=== PATIENT | female | born 1990 | race Caucasian/White ===

== ENCOUNTER 2018-08-02 11:41 | Emergency (ER) | payer SELFPAY | END 2018-08-02 12:51 | disposition home or self-care (01) | LOC: ERS 11:41 | DX: L60.0 Ingrowing nail (principal) | CPT/HCPCS: 99283 ==

== ENCOUNTER 2019-08-02 13:20 | Inpatient (IN) | payer SELFPAY ==
[2019-08-02] MEDS ORDERED: Activated Charcoal/Sorbitol 25 GM/120 ML TUBE ONE (14:20)
[2019-08-02 14:52] LABS: #Lymphocytes 2.4 thou/uL (1.20-3.40); #Monocytes 0.7 thou/uL (0.11-0.59); #Neutrophils 9.8 thou/uL (1.40-6.50); %Basophils 0.4 % (0.0-1.0); %Eosinophils 0.3 % (0.0-10.0); %Lymphocytes 18.3 % (21.0-51.0); %Monocytes 5.3 % (0.0-10.0); %Neutrophils 75.8 % (42.0-75.0); Hemoglobin 13.3 g/dL (12.0-16.0); Mean Corpuscular HGB CONC 33.8 g/dL (32.0-36.0); Mean Corpuscular Hemoglobin 29.1 pg (27.0-31.0); Mean Corpuscular Volume 85.9 fL (78.0-98.0); Mean Platelet Volume 7.7 fL (7.4-10.4); Platelet Count 297 thou/uL (130-400); RBC Distribution Width 11.8 % (11.5-14.5); Red Blood Cell (RBC) Count 4.58 mill/uL (4.20-5.40); White Blood Cell (WBC) Count 12.9 thou/uL (4.8-10.8)
[2019-08-02 15:12] LABS: Acetaminophen Less than 6.0 mcg/mL (10.0-30.0); Alcohol Less than 10 mg/dL (Less than 10); Salicylate Less than 8.0 mg/dL (15.0-30.0)
[2019-08-02 15:13] LABS: ALT (SGPT) 14 U/L (8-55); AST (SGOT) 36 U/L (5-34); Albumin 4.2 g/dL (3.5-5.0); Alkaline Phosphatase 78 U/L (40-110); Anion Gap 14 mmol/L (10-20); BUN (Urea Nitrogen) 16 mg/dL (7.0-18.7); Bilirubin, Total 0.3 mg/dL (0.2-1.2); Calc. Creatinine Clearance 0 mL/min (70-130); Calcium 9.2 mg/dL (7.8-10.44); Carbon Dioxide 25 mmol/L (22-29); Chloride 104 mmol/L (98-107); Estimated GFR-MDRD Greater than 90; Globulin 3.1 g/dL (2.4-3.5); Glucose 88 mg/dL (70-105); Potassium 3.7 mmol/L (3.5-5.1); Protein, Total 7.3 g/dL (6.0-8.3); Sodium 139 mmol/L (136-145)
[2019-08-02 16:45] LABS: Bacteria/HPF None Seen HPF (None Seen); Bilirubin Negative (Negative); Blood, Urine 2+ (Negative); Clarity Clear (Clear); Glucose, Urine (Dipstick) Normal (Negative); Leukocyte Negative Leu/uL (Negative); Nitrite Negative (Negative); Protein, Urine (Dipstick) Negative (Neg-Trace); RBC/HPF 0-3 HPF (0-3); Squamous Epithelial None Seen HPF (0-3); Urobilinogen Normal mg/dL (Less than 2); WBC/HPF 0-3 HPF (0-3)
[2019-08-02 17:23] LABS: Pregnancy Test - Urine (BHCG) Negative (Negative); Pregu Control Background? CLEAR/WHITE (CLR/WHITE); Pregu Control Bar Appear? YES (CONTROL BAR); Specific Gravity 1.014 (1.002-1.036)
[2019-08-02 17:33] LABS: Amphetamine Not Detected (NotDetected); Barbiturates Screen Not Detected (NotDetected); Benzodiazepine Screen Not Detected (NotDetected); Cocaine Metabolite Screen Not Detected (NotDetected); Medtox Control Line Valid? VALID (VALID); Medtox Reader # READER 4; Methadone Not Detected (NotDetected); Methamphetamine Not Detected (NotDetected); Opiate Screen Not Detected (NotDetected); Oxycodone Screen Not Detected (NotDetected); Phencyclidine (PCP) Not Detected (NotDetected); THC/Cannabinoid Screen Not Detected (NotDetected); Tricyclic Screen Not Detected (NotDetected)
[2019-08-02] MEDS ORDERED: Calcium Carbonate 500 MG ChewTAB PO PRN (18:34)
[2019-08-02] MEDS ORDERED: Ondansetron ODT 4 MG TAB PO PRN (18:34)
[2019-08-02] MEDS ORDERED: Acetaminophen 325 MG TAB PO PRN (18:34)
[2019-08-02] MEDS ORDERED: Lorazepam 2 MG/ML VIAL SLOW IVP PRN ×3 (18:38→18:41)
[2019-08-02] MEDS ORDERED: ALPRAZolam 0.25 MG TAB PO PRN (18:41)
[2019-08-02] MEDS: Senokot S 8.6-50 MG TAB PO SCH (23:33)
[2019-08-02] MEDS: Famotidine 20 MG TAB PO SCH (23:33)
[2019-08-02] MEDS: Sodium Bicarbonate 50 MEQ in Dextrose 5 %-0.45 % NaCl 1,000 ML IV SCH (23:33)
[2019-08-03 00:16] VITALS: BMI 30.6
[2019-08-03 04:55] LABS: #Lymphocytes 3.2 thou/uL (1.20-3.40); #Monocytes 0.7 thou/uL (0.11-0.59); #Neutrophils 5.9 thou/uL (1.40-6.50); %Basophils 0.4 % (0.0-1.0); %Eosinophils 0.3 % (0.0-10.0); %Monocytes 7.4 % (0.0-10.0); %Neutrophils 59.9 % (42.0-75.0); Hemoglobin 12.4 g/dL (12.0-16.0); Mean Corpuscular HGB CONC 33.5 g/dL (32.0-36.0); Mean Corpuscular Hemoglobin 29.6 pg (27.0-31.0); Mean Corpuscular Volume 88.3 fL (78.0-98.0); Mean Platelet Volume 7.9 fL (7.4-10.4); Platelet Count 286 thou/uL (130-400); RBC Distribution Width 12.1 % (11.5-14.5); Red Blood Cell (RBC) Count 4.18 mill/uL (4.20-5.40); White Blood Cell (WBC) Count 9.9 thou/uL (4.8-10.8)
[2019-08-03 05:18] LABS: ALT (SGPT) 11 U/L (8-55); AST (SGOT) 32 U/L (5-34); Albumin 3.5 g/dL (3.5-5.0); Alkaline Phosphatase 66 U/L (40-110); Anion Gap 13 mmol/L (10-20); BUN (Urea Nitrogen) 9 mg/dL (7.0-18.7); Bilirubin, Total 0.3 mg/dL (0.2-1.2); Calc. Creatinine Clearance 146 mL/min (70-130); Carbon Dioxide 22 mmol/L (22-29); Chloride 106 mmol/L (98-107); Estimated GFR-MDRD Greater than 90; Globulin 2.8 g/dL (2.4-3.5); Glucose 81 mg/dL (70-105); Magnesium 1.9 mg/dL (1.6-2.6); Potassium 3.7 mmol/L (3.5-5.1); Protein, Total 6.3 g/dL (6.0-8.3); Sodium 137 mmol/L (136-145)
[2019-08-03] MEDS: Ondansetron PF 4 MG/2 ML Vial IVP PRN ×2 (08:07→18:04)
[2019-08-03] MEDS: Senokot S 8.6-50 MG TAB PO SCH (08:16)
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
[2019-08-03] MEDS: Sodium Bicarbonate 50 MEQ in Dextrose 5 %-0.45 % NaCl 1,000 ML IV SCH (09:03)
[2019-08-03] MEDS: Famotidine 20 MG TAB PO SCH (09:08)
[2019-08-03 11:59] VITALS: TEMP 98
--- NOTE | 2019-08-03 16:16 | PDOC.HOSPP ---
- Subjective Encounter Date: 08/03/19 Encounter Time: 11:00 Subjective: Patient seen and examined for OD. Mentation improved. No new complaints. No overnight events - Objective Vital Signs & Weight: Vital Signs (12 hours) Temp Pulse Resp BP Pulse Ox 08/03/19 15:56 98 F 80 16 90/63 99 08/03/19 11:58 98 F 75 16 103/61 96 08/03/19 09:04 100 08/03/19 07:43 98.4 F 82 16 108/74 100 Weight Weight 167 lb 7 oz Result Diagrams: 08/03/19 04:46 08/03/19 04:46 EKG Reviewed by me: Yes (Tele SR) Hospitalist ROS - Review of Systems Respiratory: denies: cough, dry, shortness of breath, hemoptysis, SOB with excertion, pleuritic pain, sputum, wheezing, other Cardiovascular: denies: chest pain, palpitations, orthopnea, paroxysmal noc. dyspnea, edema, light headedness, other - Medication Medications: Active Medications Generic Name Dose Route Start Last Admin Trade Name Freq PRN Reason Stop Dose Admin Acetaminophen 650 mg 08/02/19 18:34 08/03/19 12:28 Tylenol PO 650 mg Q4H PRN Administration Headache/Fever/Mild Pain (1-3) Famotidine 20 mg 08/02/19 21:00 08/03/19 09:08 Pepcid PO 20 mg BID KARLA Administration Ondansetron HCl 4 mg 08/02/19 18:34 08/02/19 22:11 Zofran Odt PO 4 mg Q6H PRN Administration Nausea/Vomiting Ondansetron HCl 4 mg 08/02/19 18:34 08/03/19 08:07 Zofran IVP 4 mg Q6H PRN Administration Nausea/Vomiting Senna/Docusate Sodium 2 tab 08/02/19 21:00 08/03/19 08:16 Senokot S PO Not Given BID KARLA - Exam General Appearance: NAD Heart: RRR, no gallops Respiratory: CTAB, no rales Gastrointestinal: soft, non-tender, normal bowel sounds Extremities: no edema Neurological: no new deficit Hosp A/P - Plan DVT proph w/SCDs Drug overdose. Toxic Metabolic Encephalopathy. Sinus tachycardia secondary to drug overdose. History of seizure disorder. Slightly abnormal LFTs, etiology unclear. Leukocytosis unlikely to be infectious. Obesity with a BMI of 30.6. Mild intermittent asthma. PLAN: Consult [facility] LFTS improved Tachycardia improved Mentation improved. Tele - no QRS widening
[2019-08-03 16:29] VITALS: BP 104/62
--- NOTE | 2019-08-04 08:45 | DIS ---
DATE OF ADMISSION: 08/02/2019 DATE OF DISCHARGE: 08/03/2019 DISCHARGE DISPOSITION: Inpatient Psychiatry Facility. The patient left around 8:00 p.m. last evening. BRIEF HOSPITAL COURSE: The patient is a 28-year-old female with suicidal attempts in the past, presented to the hospital after swallowing approximately 150 tablets of Benadryl 25 mg. The patient was monitored on the telemetry unit. She was started on IV fluids. Per Poison Control, the patient was monitored. Next day, the patient was evaluated by [facility]. Her mentation is back to her baseline. Sinus tachycardia has improved. She has history of seizure disorder; however, she did not have any seizures during this hospital stay. The patient was advised to follow up with her primary care physician. She appears stable for discharge to inpatient psychiatry facility. FINAL DIAGNOSES: 1. Toxic metabolic encephalopathy secondary to drug overdose. 2. Sinus tachycardia secondary to toxic metabolic encephalopathy. 3. Mild intermittent asthma. 4. History of seizure disorder. 5. Slightly abnormal LFTs, resolved. 6. Leukocytosis on admission, unlikely to be infectious, resolved. 7. Obesity with a BMI of 30.6. 8. Mild intermittent asthma. PLAN: Plan of care was discussed with the patient and the family in detail, they stated understanding. Job ID: [id number]
--- NOTE | 2019-08-05 15:38 | EKG ---
Test Reason : Blood Pressure : / mmHG Vent. Rate : 119 BPM Atrial Rate : 119 BPM P-R Int : 140 ms QRS Dur : 080 ms QT Int : 336 ms P-R-T Axes : 057 061 036 degrees QTc Int : 472 ms Sinus tachycardia Cannot rule out Anterior infarct , age undetermined Abnormal ECG Confirmed by SEAN SANTANA DO ([id number]), manager editorial CHELSEY ALANIS ([id number]) on 08/05/2019 3:37:48 PM Referred By: Confirmed By:SEAN SANTANA DO
== END 2019-08-03 19:43 | disposition short-term general hospital (02) | DRG 917 ==
LOC: ERS 13:20 → 2SE 18:00
PROVIDERS: ADMIT Internal Medicine; ATTEND Internal Medicine
DX: T45.0X2A Poisoning by antiallergic and antiemetic drugs, intentional self-harm, initial encounter (principal); G92 Toxic encephalopathy; Z79.899 Other long term (current) drug therapy; Z90.49 Acquired absence of other specified parts of digestive tract; Z98.51 Tubal ligation status; G40.909 Epilepsy, unspecified, not intractable, without status epilepticus; Z88.0 Allergy status to penicillin; Z88.8 Allergy status to other drugs, medicaments and biological substances; F17.210 Nicotine dependence, cigarettes, uncomplicated; J45.20 Mild intermittent asthma, uncomplicated; D72.829 Elevated white blood cell count, unspecified; E66.9 Obesity, unspecified; Z68.30 Body mass index [BMI] 30.0-30.9, adult; R00.0 Tachycardia, unspecified
CPT/HCPCS: 36415; 80053; 80306; 80307; 81003; 81015; 81025; 83735; 84443; 84484; 85025; 93005; J2405; J7042; Q0162

== ENCOUNTER 2020-11-22 13:25 | Emergency (ER) | payer SELFPAY ==
[2020-11-22 14:25] LABS: #Eosinphils 0.1 thou/uL (0.0-0.7); #Lymphocytes 1.7 thou/uL (1.20-3.40); #Monocytes 0.6 thou/uL (0.11-0.59); #Neutrophils 3.8 thou/uL (1.40-6.50); %Basophils 0.2 % (0.0-1.0); %Eosinophils 1.9 % (0.0-10.0); %Lymphocytes 27.5 % (21.0-51.0); %Monocytes 9.8 % (0.0-10.0); %Neutrophils 60.6 % (42.0-75.0); Hemoglobin 13.9 g/dL (12.0-16.0); Mean Corpuscular HGB CONC 31.9 g/dL (32.0-36.0); Mean Corpuscular Hemoglobin 27.9 pg (27.0-31.0); Mean Corpuscular Volume 87.3 fL (78.0-98.0); Mean Platelet Volume 7.5 fL (7.4-10.4); Platelet Count 327 thou/uL (130-400); RBC Distribution Width 11.9 % (11.5-14.5); Red Blood Cell (RBC) Count 4.99 mill/uL (4.20-5.40); White Blood Cell (WBC) Count 6.2 thou/uL (4.8-10.8)
[2020-11-22 14:30] LABS: BHCG - Serum Negative (NEGATIVE); Pregs Control Background? CLEAR/WHITE (CLR/WHITE); Pregs Control Bar Appear? YES (CONTROL BAR)
[2020-11-22 15:04] LABS: ALT (SGPT) 21 U/L (8-55); AST (SGOT) 47 U/L (5-34); Alkaline Phosphatase 124 U/L (40-110); Anion Gap 11 mmol/L (10-20); BUN (Urea Nitrogen) 12 mg/dL (7.0-18.7); Bilirubin, Total 0.5 mg/dL (0.2-1.2); Calc. Creatinine Clearance 0 mL/min (70-130); Calcium 8.2 mg/dL (7.8-10.44); Carbon Dioxide 25 mmol/L (22-29); Chloride 104 mmol/L (98-107); Globulin 3.3 g/dL (2.4-3.5); Glucose 99 mg/dL (70-105); Potassium 3.7 mmol/L (3.5-5.1); Protein, Total 7.3 g/dL (6.0-8.3); Sodium 136 mmol/L (136-145)
[2020-11-22] MEDS ORDERED: manNITOL 20% 0 ML ONE (15:05)
== END 2020-11-22 14:48 | disposition left against medical advice (07) ==
LOC: ERS 13:25
DX: Z53.21 Procedure and treatment not carried out due to patient leaving prior to being seen by health care provider (principal)
CPT/HCPCS: 36415; 80053; 84703; 85025; J7799